=== PATIENT | male | born 1950 | race Caucasian/White ===

== ENCOUNTER → 2016-11-08 | Outpatient (CLI) | payer OTHER, MEDICARE | LOC: FCPNEURO 21:00 | PROVIDERS: ATTEND Psychiatry & Neurology Sleep Medicine | DX: G47.33 Obstructive sleep apnea (adult) (pediatric) (principal); G47.34 Idiopathic sleep related nonobstructive alveolar hypoventilation ==

== ENCOUNTER 2017-11-16 07:52 | Observation (INO) | payer OTHER, MEDICARE ==
--- NOTE | 2017-11-16 08:31 | PDANEPAE ---
ANE History of Present Illness BPH here for TURP ANE Past Medical History - Cardiovascular History Hx Hypertension: No Hx Arrhythmias: No Hx Chest Pain: No Hx Coronary Artery / Peripheral Vascular Disease: No Hx CHF / Valvular Disease: No Hx Palpitations: No - Pulmonary History Hx COPD: No Hx Asthma/Reactive Airway Disease: Yes Hx Recent Upper Respiratory Infection: No Hx Oxygen in Use at Home: No Hx Sleep Apnea: Yes Sleep Apnea Screening Result - Last Documented: Positive Pulmonary History Comment: asthma managed w/inhaler. PILAR -uses oral appliance - Neurologic History Hx Cerebrovascular Accident: No Hx Seizures: No Hx Dementia: No - Endocrine History Hx Diabetes: No - Renal History Hx Renal Disorders: Yes Renal History Comment: BPH -urinary obstruction - Liver History Hx Hepatic Disorders: No - Neurological & Psychiatric Hx Hx Neurological and Psychiatric Disorders: No - Cancer History Hx Cancer: No - Congenital Disorder History Hx Congenital Disorders: No - GI History Hx Gastrointestinal Disorders: No - Other Health History Other Health History: flonase for itchy eyes/allergies - Chronic Pain History Chronic Pain: No - Surgical History Prior Surgeries: greenlight laser 06-30. rhinoplasty . R eyelid/cheek reconstruction ANE Review of Systems Review of Systems: - Exercise capacity METS (RN): 4 METS ANE Patient History - Allergies Allergies/Adverse Reactions: Sulfa (Sulfonamide Antibiotics) Allergy (Verified 10/25/17 10:59) Hives - Home Medications Home Medications: Budesonide 90 Mcg INH [Pulmicort 90 Mcg Flexhaler (*)] 1 puffs IH DAILY [Last Taken Unknown] Fluticasone Nasal [Flonase Nasal [place] (RX)] 1 sprays NASAL DAILY 10/24/17 [ Last Taken Unknown] Herbals/Supplements -Info Only 1 ea PO DAILY 10/24/17 [Last Taken Unknown] Tamsulosin HCl [Flomax 0.4 MG (*)] 0.8 mg PO HS 10/24/17 [Last Taken Unknown] traZODone [traZODONE 100MG (*)] 100 mg PO HS 10/24/17 [Last Taken Unknown] - NPO status NPO Status: no food or drink >8 hours - Anes Hx Anes Hx: no prior problems - Smoking Hx Smoking Status: Never smoked - Alcohol Use Alcohol Use: Occasionally - Family Anes Hx Family Anes Hx: none ANE Labs/Vital Signs - Vital Signs Vital Signs: reviewed preoperatively; see RN documention for details Height: 175.26 cm Weight: 86.183 kg ANE Physical Exam - Airway Neck exam: FROM Mallampati Score: Class 2 Mouth exam: normal dental/mouth exam - Pulmonary Pulmonary: no respiratory distress, clear to auscultation - Cardiovascular Cardiovascular: regular rate and rhythym, no murmur, rub, or gallop - ASA Status ASA Status: II ANE Anesthesia Plan Anesthesia Plan: GA w LMA
[2017-11-16] MEDS ORDERED: MIDAZOLAM 2 MG/2 ML VIAL IVP ONE (08:34)
[2017-11-16] MEDS ORDERED: levOFLOXACIN 500 MG/DEXTROSE 100 ML IV ONE (08:43)
[2017-11-16] MEDS ORDERED: LR 1,000 ML IV ONE (08:44)
--- NOTE | 2017-11-16 09:09 | PDHPUP ---
History & Physical Update H&P update statement: This history and physical update is based on an assessment of the patient which was completed after admission or registration (within 24 hours), but prior to the surgery/procedure. H&P update: no change in patient's condition since H&P completed
[2017-11-16] MEDS ORDERED: NALOXONE HCL 0.4 MG/ML INJ IVP PRN (10:46)
[2017-11-16] MEDS ORDERED: HYDROCODONE/APAP 5/325 TAB PO PRN (10:46)
[2017-11-16] MEDS ORDERED: ONDANSETRON 4 MG/2 ML VIAL IVP PRN ×2 (10:46→11:02)
[2017-11-16] MEDS ORDERED: ALBUTEROL 3 ML DEYVIAL IH PRN (10:46)
[2017-11-16] MEDS ORDERED: fentaNYL 100 MCG/2 ML INJ IVP PRN (10:46)
--- NOTE | 2017-11-16 10:48 | POSTANESTH ---
Post Anesthetic Evaluation Cardiovascular Status: Normal, Stable, Similar to Pre-Op Cond Respiratory Status: Normal, Stable, Similar to Pre-op Cond. Level of Consciousness/Mental Status: Can Participate in Eval, Alert and Oriented Pain Control: Adequate, Prn Tx Ordered Nausea/Vomiting Control: Adequate, Prn Tx Ordered Complications Possibly Related to Anesthesia: None Noted
--- NOTE | 2017-11-16 10:58 | POSTOPPROG ---
Post Op Note Date of Operation: 11/16/17 Surgeon: Adrián Lentz (# [id number]) Anesthesia: LMA Pre-op Diagnosis: BPH w/ obstruction Post-op Diagnosis: BPH w/ obstruction Procedure: TURP Findings: See op note Inf/Abcess present in the surg proc area at time of surgery?: No EBL: Minimal (25 cc) Complications: None Specimen(s): Prostate chips
[2017-11-16] MEDS ORDERED: OPIUM/BELLADONNA ALKALO SUPP PR PRN (11:02)
[2017-11-16] MEDS ORDERED: HYDROmorphONE/DILAUDID 2 MG/ML INJ IVP PRN (11:02)
[2017-11-16] MEDS ORDERED: PROMETHAZINE HCL 25 MG/ML INJ IVP PRN (11:02)
[2017-11-16] MEDS ORDERED: D5W 1/2 NS 1,000 ML IV SCH (11:15)
--- NOTE | 2017-11-16 11:37 | GOP ---
[f rep st] OPERATIVE REPORT DATE OF OPERATION: 11/16/2017 SURGEON: Adrián Lentz MD ANESTHESIA: Laryngeal mask. PREOPERATIVE DIAGNOSIS: Recurrent benign prostatic hyperplasia with obstruction. POSTOPERATIVE DIAGNOSIS: Recurrent benign prostatic hyperplasia with obstruction. PROCEDURE PERFORMED: Transurethral prostate resection. FINDINGS: Recurrent BPH with a mild bladder neck contracture. SPECIMENS: Prostate tissue. ESTIMATED BLOOD LOSS: Approximately 25 cc. INDICATIONS: This is a gentleman who previously underwent GreenLight photovaporization of the prostate in June 2015. He was found to have some persistent adenoma as well as some mild contracture of the bladder neck. Due to the associated urinary symptoms, it was decided he would undergo intraoperative management at this time. The indications for the procedures as well as potential risks and complications were discussed with the patient preoperatively. He appeared to understand, his questions were answered, and he wished to proceed. Written informed surgical consent was thereafter obtained. DESCRIPTION OF PROCEDURE: The patient was brought to the operating room and administered laryngeal mask anesthesia. He was carefully placed in the dorsal lithotomy position on the cystoscopic table. The genital area was sterilely prepped with Betadine scrub and paint then draped in usual sterile fashion. Cystoscopy was performed with the 30-degree and 70-degree lenses through a 22- Wolof sheath. Anterior urethra revealed no abnormalities. Posterior urethra revealed recurrent BPH adenoma with a bladder neck contracture that was approximately 22-Wolof in diameter. The bladder was moderately to heavily trabeculated but without areas of abnormal erythema, tumors, and nor foreign bodies. Ureteral orifices were normal in regards to shape and position along the trigone. The 26-Wolof resectoscopic sheath with visual obturator and the 30 degree lens were then inserted after dilating the anterior urethra carefully with Dimple sounds up to 28-Wolof. The [facility] resectoscope with a standard resecting loop was then inserted. Using continuous flow normal saline resection, the prostate and bladder neck were resected systematically in a circumferential fashion from the level of bladder neck back towards the verumontanum. Hemostasis was achieved with the loop and also a button electrode. All of the resected prostate tissue was evacuated from the bladder using an [employer] evacuator. At the conclusion of the procedure, the prostatic fossa was widely patent, ureteral orifices were well preserved, and no resection had been performed distal to the verumontanum. It was noted, however, that there was some focal bullous edema of the bladder mucosa along the left lateral wall near the conclusion of the procedure. There was no bess perforation appreciated. My thought process was that this would heal spontaneously with a few days of indwelling Torres catheterization. Once all the prostate tissue been removed from the bladder, the instruments were removed and a 22-Wolof [address] Torres catheter inserted with the use of a catheter guide. Approximately 35 cc of sterile fluid was placed in the balloon. The catheter irrigated manually and the return was light pink. The catheter was connected to continuous irrigation and bag drainage. The patient was then awakened, transferred to his bed, then taken to the recovery room. He tolerated the procedure well overall. COMPLICATIONS: None. DISPOSITION: He was transferred to the recovery room in stable condition. He will be admitted overnight for postoperative care including continuous bladder irrigation. /[id number]/MODL MTDD
[2017-11-16] MEDS: LIDOCAINE 2% JELLY 5 ML TUBE TP PRN ×2 (18:24→21:24)
[2017-11-16] MEDS ORDERED: traZODone 100 MG TAB PO SCH (21:00)
[2017-11-16] MEDS: HYDROCODONE/APAP 5/325 TAB PO PRN (21:23)
[2017-11-17] MEDS: LIDOCAINE 2% JELLY 5 ML TUBE TP PRN ×2 (04:39→09:47)
[2017-11-17 08:27] VITALS: BP 132/80
--- NOTE | 2017-11-17 08:45 | SOAPPROG ---
SOAP Progress Note Assessment/Plan: Assessment: POD 1 s/p TURP -- doing well. Plan: D/C home w/ Torres later today. Subjective: C/O penile tip catheter pain. Objective: Vital Signs Temp Pulse Resp BP Pulse Ox 36.3 C 69 15 132/80 H 96 11/17/17 08:22 11/17/17 08:22 11/17/17 08:22 11/17/17 08:22 11/17/17 08:22 11/16/17 11/17/17 11/18/17 05:59 05:59 05:59 Intake Total 1700 Output Total 1050 Balance 650 Physical Exam - Physical Exam General Appearance: WD/WN, alert, no apparent distress Abdomen: non-tender, soft Male Genitalia: other (clear urine on min. CBI) Skin: normal color, warm/dry Extremities: normal inspection Neuro/Psych: alert, normal mood/affect, oriented x 3 ICD10 Worksheet Patient Problems: Problems Problem Status Onset Back pain Acute
[2017-11-17] MEDS: BUDESONIDE 90 MCG MDI IH SCH ×2 (08:59→10:14)
[2017-11-17] MEDS ORDERED: FLUTICASONE NASAL 120 SPRAYS/16 GM MDI EACHNARE SCH (09:00)
[2017-11-17] MEDS: HYDROCODONE/APAP 5/325 TAB PO PRN (10:11)
--- NOTE | 2017-11-21 09:44 | GDS ---
[f rep st] DISCHARGE SUMMARY ADMITTING DIAGNOSES: 1. Benign prostatic hypertrophy with urinary obstruction. 2. Bladder neck contracture. DISCHARGE DIAGNOSES: 1. Benign prostatic hypertrophy with urinary obstruction. 2. Bladder neck contracture. PROCEDURE: Transurethral prostate resection on 11/16/2017. HOSPITAL COURSE: Refer to the operative report for details regarding the procedure. Postoperatively, the patient did well. He was maintained on continuous bladder irrigation the night of surgery. This was stopped the following day and the urine remained relatively clear. The patient was being discharged with his Torres catheter with instructions to remove it at home approximately 3 days following discharge. His postoperative vital signs were stable, and he was afebrile. The remai nder of his physical exam was unremarkable. He was ready for discharge on postoperative day 1. He i s being discharged on his regular medications as well as [place] p.r.n. pain. He is also being given l idocaine p.r.n. penile tip discomfort. He has been given activity restriction instructions. He has been also instructed to return to my office in approximately 3-4 weeks. /[id number]/MODL
== END 2017-11-17 12:11 | disposition home or self-care (01) ==
LOC: F1N 07:52
PROVIDERS: ADMIT Specialist; ATTEND Specialist
PROC: 0VT08ZZ Resection of Prostate, Via Natural or Artificial Opening Endoscopic (ICD-10-PCS; principal; 2017-11-16 09:00)
PROC: 3C1ZX8Z Irrigation of Indwelling Device using Irrigating Substance, External Approach (ICD-10-PCS; principal; 2017-11-16 09:00)
DX: N40.1 Benign prostatic hyperplasia with lower urinary tract symptoms (principal); R35.0 Frequency of micturition; N32.0 Bladder-neck obstruction; R35.1 Nocturia; N39.41 Urge incontinence; R33.9 Retention of urine, unspecified; N52.9 Male erectile dysfunction, unspecified; R97.20 Elevated prostate specific antigen [PSA]; M10.9 Gout, unspecified; G47.33 Obstructive sleep apnea (adult) (pediatric); Z87.891 Personal history of nicotine dependence; Z88.2 Allergy status to sulfonamides
CPT/HCPCS: 52630; J1956; J2250

== ENCOUNTER 2018-01-14 21:07 | Observation (INO) | payer OTHER, MEDICARE ==
--- NOTE | 2018-01-14 21:54 | EDPHY ---
H & P Stated Complaint: abd pain diarrhea unknown blood color blind Time Seen by Provider: 01/14/18 21:54 HPI/ROS: HPI CHIEF COMPLAINT: Abdominal pain, diarrhea HISTORY OF PRESENT ILLNESS: Patient very pleasant 67-year-old male, otherwise healthy but does have obstructive sleep apnea, presents emergency room with 3-4 days of watery diarrhea. He also complains of lower abdominal cramping. Patient denies any fever, denies chest pain or shortness of breath, he is unsure of the color of his stool as he states it is dark but is color blind he is not sure he seen any blood in it. His main complaint is ongoing diarrhea and abdominal cramps he also endorses some chills but no fever. Current level pain 09/23. Past Medical History: Obstructive sleep apnea, BPH Past Surgical History: Recent TURP 2 months ago. Social History: Denies drugs alcohol tobacco. Family History: Noncontributory ROS REVIEW OF SYSTEMS: A comprehensive 10 point review of systems is otherwise negative aside from elements mentioned in the history of present illness. Exam Constitutional triage nursing summary reviewed, vital signs reviewed, awake/ alert. Eyes normal conjunctivae and sclera, EOMI, PERRLA. HENT normal inspection, atraumatic, moist mucus membranes, no epistaxis, neck supple/ no meningismus, no raccoon eyes. Respiratory clear to auscultation bilaterally, normal breath sounds, no respiratory distress, no wheezing. Cardiovascular rate normal, regular rhythm, no murmur, no edema, distal pulses normal. Gastrointestinal tender palpation lower abdomen mainly suprapubic left lower quadrant, no rebound, no guarding, normal bowel sounds, no distension, no pulsatile mass. Genitourinary no CVA tenderness. Musculoskeletal no midline vertebral tenderness, full range of motion, no calf swelling, no tenderness of extremities, no meningismus, good pulses, neurovascularly intact. Skin pink, warm, & dry, no rash, skin atraumatic. Neurologic awake, alert and oriented x 3, AAOx3, moves all 4 extremities equally, motor intact, sensory intact, CN II-XII intact, normal cerebellar, normal vision, normal speech. Psychiatric normal mood/affect. Heme/Lymph/Immune no lymphadenopathy. Differential diagnosis includes but is not limited to and in no particular order : Bowel obstruction, appendicitis, gallbladder disease, diverticulitis, colitis , enteritis, perforated viscus, gastritis, GERD, esophagitis, urinary tract infection, pyelonephritis, kidney stones Medical Decision Making: Plan for this patient IV establishment IV fluid bolus 1 L normal saline, check lactic acid, labs, CT scan abdomen pelvis with IV contrast rule out colitis or diverticulitis additionally stool studies, occult blood. C diff. Re-evaluation: 022: Stool specimen reviewed. Dark brown. Not black. Was trace Hemoccult- positive. Most likely from colitis seen on CT scan. I had a long discussion with the patient about going home versus being admitted. I discussed treatment options about going home however patient has declined and does not want to go home he prefers to be admitted overnight for observation and hydration. Of the long discussion that he can go home and do this however declines discharge prefers to be admitted. Will contact the hospitalist service for this. Source: Patient - Personal History Current Tetanus/Diphtheria Vaccine: Yes Current Tetanus Diphtheria and Acellular Pertussis (TDAP): Yes Tetanus Vaccine Date: within the last 10 yrs - Medical/Surgical History Hx Asthma: Yes Hx Chronic Respiratory Disease: No Hx Diabetes: No Hx Cardiac Disease: No Hx Renal Disease: No Hx Cirrhosis: No Hx Alcoholism: No Hx HIV/AIDS: No Hx Splenectomy or Spleen Trauma: No Other PMH: BPH, - Social History Smoking Status: Never smoked Constitutional: Initial Vital Signs Temperature (C) 36.9 C 01/14/18 21:30 Heart Rate 90 01/14/18 21:30 Respiratory Rate 18 01/14/18 21:30 Blood Pressure 119/83 H 01/14/18 21:30 O2 Sat (%) 92 01/14/18 21:30 O2 Delivery Mode Room Air Allergies/Adverse Reactions: Sulfa (Sulfonamide Antibiotics) Allergy (Verified 10/25/17 10:59) Hives Home Medications: Medication Instructions Recorded Budesonide 90 Mcg INH [Pulmicort 1 puffs IH DAILY 10/24/17 90 Mcg Flexhaler (*)] Fluticasone Nasal [Flonase Nasal 1 sprays NASAL DAILY 10/24/17 [place]] Herbals/Supplements -Info Only 1 ea PO DAILY 10/24/17 traZODone [traZODONE 100MG (*)] 100 mg PO HS 10/24/17 Acetaminophen [Tylenol 325mg (*)] 650 mg PO Q4HRS PRN tab 01/15/18 Medical Decision Making - Data Points Laboratory Results: Laboratory Results 01/14/18 22:00 01/14/18 22:00 Microbiology Results: MICROBIOLOGY 01/14/18 23:01 Urine,Clean Catch Urine Culture - Preliminary 01/14/18 00:05 Stool Gastrointestinal Tract Panel (PCR) - Final No Organism Detected Medications Given: Discontinued Medications Sodium Chloride (Ns) 1,000 mls @ 0 mls/hr IV EDNOW ONE; Wide Open PRN Reason: Protocol Stop: 01/14/18 21:59 Last Admin: 01/14/18 22:10 Dose: 1,000 mls Sodium Chloride (Ns) 1,000 mls @ 0 mls/hr IV ONCE ONE PRN Reason: Wide Open Stop: 01/15/18 01:21 Last Admin: 01/15/18 01:26 Dose: 1,000 mls Departure - Departure Disposition: [facility] Inpatient Acute Clinical Impression: Colitis, Dehydration Diarrhea Qualifiers: Diarrhea type: unspecified type Qualified Code(s): R19.7 - Diarrhea, unspecified Condition: Good
[2018-01-14] MEDS ORDERED: NS 1,000 ML IV ONE (21:58)
[2018-01-14 22:21] LABS: PLATELET COUNT 182 10^3/uL (150-400)
[2018-01-14] MEDS ORDERED: IOPAMIDOL (ISOVUE-300) 100 ML BTL ONE (22:32)
[2018-01-14 22:34] LABS: INR 1.06 (0.83-1.16)
[2018-01-15] MEDS ORDERED: NS 1,000 ML IV ONE (01:20)
[2018-01-15] MEDS ORDERED: ONDANSETRON 4 MG/2 ML VIAL IVP PRN (02:34)
[2018-01-15] MEDS ORDERED: ONDANSETRON DISINTEGRATING 4 MG TAB PO PRN (02:34)
[2018-01-15] MEDS ORDERED: ACETAMINOPHEN 325 MG TAB PO PRN (02:34)
[2018-01-15] MEDS ORDERED: NS W/ 20 KCl/L 1,000 ML IV SCH (02:45)
--- NOTE | 2018-01-15 02:54 | PDGENHP ---
History and Physical - Chief Complaint Diarrhea - History of Present Illness 67 yo M w/ hx of BPH s/p recent TURP presents with diarrhea. He tells me for 3 days he has been having greater than 20 stools daily. His had similar symptoms a few days ago that self-resolved in 2 days. His symptoms continued so he came in to the ED because he feels weak and has a hard time functioning as a result. He is fairly healthy at baseline and his only PMHx is PILAR and BPH. He had a TURP recently to treat the latter, he denies infectious urinary symptoms at this time. He also denies fever, chills, body aches, and abdominal pain. Case discussed with Dr. Cast, previous records reviewed including operative note by Dr. Lentz dated 11/17/17. History Information - Allergies/Home Medication List Allergies/Adverse Reactions: Sulfa (Sulfonamide Antibiotics) Allergy (Verified 10/25/17 10:59) Hives Home Medications: Budesonide 90 Mcg INH [Pulmicort 90 Mcg Flexhaler (*)] 1 puffs IH DAILY [Last Taken 11/09/17] Fluticasone Nasal [Flonase Nasal [place]] 1 sprays NASAL DAILY 10/24/17 [Last Taken 11/15/17] Herbals/Supplements -Info Only 1 ea PO DAILY 10/24/17 [Last Taken 11/15/17] traZODone [traZODONE 100MG (*)] 100 mg PO HS 10/24/17 [Last Taken 11/15/17] I have personally reviewed and updated: family history, medical history - Past Medical History Additional medical history: BPH. PILAR - Surgical History Additional surgical history: TURP - Family History Positive for: cancer - Social History Smoking Status: Never smoked Review of Systems Review of Systems: ROS: 10pt was reviewed & negative except for what was stated in HPI & below Physical Exam Physical Exam: Temp Pulse Resp BP Pulse Ox 36.6 C 79 18 129/89 H 94 01/15/18 02:49 01/15/18 02:49 01/15/18 02:49 01/15/18 02:49 01/15/18 02:49 Constitutional: no apparent distress, not in pain Eyes: PERRL, EOMI Ears, Nose, Mouth, Throat: moist mucous membranes, no oral mucosal ulcers Cardiovascular: regular rate and rhythym, no murmur, rub, or gallop Respiratory: no respiratory distress, no rales or rhonchi Gastrointestinal: normoactive bowel sounds, soft, non-tender abdomen, No guarding, No rebound, No distension Skin: warm, normal color Musculoskeletal: full muscle strength, no muscle tenderness Neurologic: AAOx3, CN II-XII Intact Psychiatric: interacting appropriately, not anxious Lab Data & Imaging Review 01/14/18 22:00 01/14/18 22:00 WBC 7.32 10^3/uL (3.80-9.50) 01/14/18 22:00 RBC 4.55 10^6/uL (4.40-6.38) 01/14/18 22:00 Hgb 14.8 g/dL (13.7-17.5) 01/14/18 22:00 Hct 43.6 % (40.0-51.0) 01/14/18 22:00 MCV 95.8 fL (81.5-99.8) 01/14/18 22:00 MCH 32.5 pg (27.9-34.1) 01/14/18 22:00 MCHC 33.9 g/dL (32.4-36.7) 01/14/18 22:00 RDW 12.5 % (11.5-15.2) 01/14/18 22:00 Plt Count 182 10^3/uL (150-400) 01/14/18 22:00 MPV 8.5 fL (8.7-11.7) L 01/14/18 22:00 Neut % (Auto) 63.3 % (39.3-74.2) 01/14/18 22:00 Lymph % (Auto) 20.5 % (15.0-45.0) 01/14/18 22:00 [place] % (Auto) 11.6 % (4.5-13.0) 01/14/18 22:00 Eos % (Auto) 3.6 % (0.6-7.6) 01/14/18 22:00 Baso % (Auto) 0.7 % (0.3-1.7) 01/14/18 22:00 Nucleat RBC Rel Count 0.0 % (0.0-0.2) 01/14/18 22:00 Absolute Neuts (auto) 4.64 10^3/uL (1.70-6.50) 01/14/18 22:00 Absolute Lymphs (auto) 1.50 10^3/uL (1.00-3.00) 01/14/18 22:00 Absolute Monos (auto) 0.85 10^3/uL (0.30-0.80) H 01/14/18 22:00 Absolute Eos (auto) 0.26 10^3/uL (0.03-0.40) 01/14/18 22:00 Absolute Basos (auto) 0.05 10^3/uL (0.02-0.10) 01/14/18 22:00 Absolute Nucleated RBC 0.00 10^3/uL (0-0.01) 01/14/18 22:00 Immature Gran % 0.3 % (0.0-1.1) 01/14/18 22:00 Immature Gran # 0.02 10^3/uL (0.00-0.10) 01/14/18 22:00 PT 14.0 SEC (12.0-15.0) 01/14/18 22:00 INR 1.06 (0.83-1.16) 01/14/18 22:00 APTT 29.3 SEC (23.0-38.0) 01/14/18 22:00 VBG Lactic Acid 0.7 mmol/L (0.7-2.1) 01/14/18 22:00 Sodium 133 mEq/L (135-145) L 01/14/18 22:00 Potassium 3.9 mEq/L (3.3-5.0) 01/14/18 22:00 Chloride 102 mEq/L (97-110) 01/14/18 22:00 Carbon Dioxide 28 mEq/l (22-31) 01/14/18 22:00 Anion Gap 3 mEq/L (8-16) L 01/14/18 22:00 BUN 14 mg/dL (7-23) 01/14/18 22:00 Creatinine 0.8 mg/dL (0.7-1.3) 01/14/18 22:00 Estimated GFR > 60 01/14/18 22:00 Glucose 92 mg/dL (70-100) 01/14/18 22:00 Calcium 9.3 mg/dL (8.5-10.4) 01/14/18 22:00 Total Bilirubin 0.9 mg/dL (0.1-1.4) 01/14/18 22:00 Conjugated Bilirubin 0.3 mg/dL (0.0-0.5) 01/14/18 22:00 Unconjugated Bilirubin 0.6 mg/dL (0.0-1.1) 01/14/18 22:00 AST 16 IU/L (17-59) L 01/14/18 22:00 ALT 38 IU/L (21-72) 01/14/18 22:00 Alkaline Phosphatase 71 IU/L (38-126) 01/14/18 22:00 Total Protein 6.8 g/dL (6.3-8.2) 01/14/18 22:00 Albumin 4.0 g/dL (3.5-5.0) 01/14/18 22:00 Lipase 54 IU/L (23-300) 01/14/18 22:00 Urine Color YELLOW 01/14/18 23:01 Urine Appearance HAZY 01/14/18 23:01 Urine pH 5.0 (5.0-7.5) 01/14/18 23:01 Ur Specific [place] 1.021 (1.002-1.030) 01/14/18 23:01 Urine Protein NEGATIVE (NEGATIVE) 01/14/18 23:01 Urine Ketones NEGATIVE (NEGATIVE) 01/14/18 23:01 Urine Blood 3+ (NEGATIVE) H 01/14/18 23:01 Urine Nitrate NEGATIVE (NEGATIVE) 01/14/18 23: Urine Bilirubin NEGATIVE (NEGATIVE) 01/14/18 23:01 Urine Urobilinogen NEGATIVE EU (0.2-1.0) 01/14/18 23:01 Ur Leukocyte Esterase 3+ (NEGATIVE) H 01/14/18 23:01 Urine RBC 25-50 /hpf (0-3) H 01/14/18 23:01 Urine WBC 50-182 /hpf (0-3) H 01/14/18 23:01 Ur Epithelial Cells NONE SEEN /lpf (NONE-1+) 01/14/18 23: Urine Mucus TRACE /lpf (NONE-1+) 01/14/18 23: Urine Glucose NEGATIVE (NEGATIVE) 01/14/18 23:01 Stool Occult Bld Scrn POSITIVE (NEGATIVE) H 01/14/18 00:05 Imaging Review: Imaging Impressions Abdomen CT 01/14/18 22:01 Impression: 1. There is some mild circumferential wall thickening associated with portions of the descending colon and the rectosigmoid colon, suggestive of a mild colitis (query infectious/inflammatory, given the patient's recent history). While there are some rare diverticula present, this does not appear to be credit representative of an acute diverticulitis. There is no pneumatosis, pneumoperitoneum, or mechanical obstruction. 2. Moderate prostatomegaly. 3. Coronary artery atherosclerotic calcifications. Findings were discussed with Coy Rollins MD at 23:27, on 01/14/2018. Assessment & Plan Assessment: 67 yo M w/ BPH and PILAR p/w likely infectious colitis. Plan: 1. Diarrhea - >20 BMs daily for 3 days; presumed infectious colitis, likely viral, noting his had similar symptoms that self-resolved after 2 days. - Admit for observation and supportive care - mIVF w/ K - GI PCR ordered - Monitor electrolytes, replete PRN 2. Abnormal UA - WBCs and RBCs, likely represent inflammation from recent TURP. Patient denies infectious symptoms. - Observe off of antibiotics - Follow urine culture 3. Hx BPH - S/p recent TURP by Dr. Lentz 4. Hx PILAR Diet - Regular Code - Full Ppx - SCDs Dispo - Admit under observation status
[2018-01-15 05:07] LABS: PLATELET COUNT 168 10^3/uL (150-400)
[2018-01-15 08:52] VITALS: BP 121/78
--- NOTE | 2018-01-15 09:19 | ASMTCMCOM ---
CM Note CM Note Notes: Chart reviewed. 67 year old male admitted with complaints of diarrhea and abdominal pain. Recent Turp, He has a CT that shows colitis and he has heme positive stools. Normally independent with his . No anticipated needs at this time. CM to follow. Plan: Home with family support when medically cleared for discharge. Date Signed: 01/15/2018 09:18 AM Electronically Signed By:Maisha Hawkins RN
--- NOTE | 2018-01-15 11:35 | ASDISCHSUM ---
Discharge Information Plan Status:Home with No Needs Medically Cleared to Leave:01/15/2018 Discharge Date:01/15/2018 CM D/C Disposition:Home, Routine, Self-Care ADT D/C Disposition:Home, Routine, Self-Care Projected Discharge Date:01/15/2018 Transportation at D/C: Discharge Delay Reason: Follow-Up Date:01/15/2018 Discharge Slot: Final Diagnosis: Placement Information Patient Contact Information Contact Name:TORI Relationship: Address:[address] [facility] City:[facility] Phone: [facility]/Zip Code:[place] [address] Email: Financial Information Financial Class:Medicare Primary Plan Desc:MEDICARE OUTPATIENT Primary Plan Number:[id number] Secondary Plan Desc:TOMI/LOIDA SUPPLEMENT Secondary Plan Number:[id number] Assessment Information LACE LACE Length of stay for Answers: Less than 1 day current admission Comorbidities - select Answers: Other Notes: BPH all that apply # of Emergency department Answers: 1-2 visits in the last 6 months Score: 2 Date Signed: 01/15/2018 11:33 AM Electronically Signed By:Maisha Hawkins RN [facility] CM Progress Note CM Note CM Note Notes: Chart reviewed. 67 year old male admitted with complaints of diarrhea and abdominal pain. Recent Turp, He has a CT that shows colitis and he has heme positive stools. Normally independent with his . No anticipated needs at this time. CM to follow. Plan: Home with family support when medically cleared for discharge. Date Signed: 01/15/2018 09:18 AM Electronically Signed By:Maisha Hawkins RN [facility] CM Progress Note CM Note CM Note Notes: Medically cleared for dc to home. No needs. Plan: DC to home. Date Signed: 01/15/2018 11:34 AM Electronically Signed By:Maisha Hawkins RN Intervention Information Intervention Type:*LAYNE-Signed Date of Service:01/15/2018 10:15 AM Patient Type:Observation Staff Member:Reanna Leyva Hours: Discipline: Severity: Comment:
--- NOTE | 2018-01-15 15:21 | GDS ---
[f rep st] DISCHARGE SUMMARY DISCHARGE DIAGNOSES: 1. Diarrhea. 2. Dysuria. 3. History of benign prostatic hypertrophy. PHYSICAL EXAM: GENERAL: The patient is alert. VITAL SIGNS: Afebrile at 36.5, pulse 78, respirator y rate 16. Blood pressure is 120/78, saturating 94% on room air. I have seen and evaluated the edna ent on the day of discharge. HOSPITAL COURSE: The patient is a 67-year-old male who presented to the emergency room after sufferi uncontrollable diarrhea. He was evaluated during this hospitalization and noted to have mild coli tis on his CT scan. His symptoms have completely resolved. He has had no further diarrhea since adm ission. IV fluids have been given. GI PCR has remained negative. The patient is tolerating a regul ar diet and would like to be discharged home. He was instructed to follow up in the outpatient [facility] with his primary care physician. He also was noted to have pyuria during this hospitalization. Leyla wright was not treated with antibiotic therapy as urine culture is pending at the time of disposition, and he does not have any signs or symptoms of infection. He had a recent TURP performed, and he will fo llow up with Dr. Lentz in the outpatient setting for urine culture results and further recommendatio ns regarding antibiotic therapy. PENDING STUDIES: Include urine culture. FOLLOWUP: Followup will be with the patient's primary care physician, as well as Dr. Lentz tomorrow in the a.m. for urine culture results. DISCHARGE MEDICATIONS: Please refer to EMR form. I have not provided the patient prescriptions at t he time of disposition or adjusted his home medications. /[id number]/MODL
[2018-01-15] MEDS ORDERED: traZODone 100 MG TAB PO SCH (21:00)
[2018-01-16] MEDS ORDERED: Herbals/Supplements -Info Only PO SCH (09:00)
[2018-01-16] MEDS ORDERED: FLUTICASONE NASAL 120 SPRAYS/16 GM MDI EACHNARE SCH (09:00)
[2018-01-16] MEDS ORDERED: BUDESONIDE 90 MCG MDI IH SCH (09:00)
== END 2018-01-15 13:08 | disposition home or self-care (01) ==
LOC: F3E 01-15 02:55
PROVIDERS: ADMIT Student in an Organized Health Care Education/Training Program; ATTEND Student in an Organized Health Care Education/Training Program
DX: R19.7 Diarrhea, unspecified (principal); R30.0 Dysuria; E86.9 Volume depletion, unspecified; G47.33 Obstructive sleep apnea (adult) (pediatric); Z88.2 Allergy status to sulfonamides; Z87.448 Personal history of other diseases of urinary system
CPT/HCPCS: 74177; G0378; Q9967

== ENCOUNTER → 2018-07-07 | Outpatient (CLI) | payer OTHER, MEDICARE | LOC: FIMAGING 11:02 | PROVIDERS: ATTEND Internal Medicine | DX: M79.602 Pain in left arm (principal); M75.82 Other shoulder lesions, left shoulder; M75.111 Incomplete rotator cuff tear or rupture of right shoulder, not specified as traumatic ==